=== PATIENT | male | born 1950 | race Caucasian/White ===

== ENCOUNTER 2021-12-14 21:11 | Emergency (ER) | payer MEDICARE ==
[~2021-12-14 21:11] MED LIST: AMARYL4 MG PO; GLUCOPHAGE1000 MG PO; LIPITOR40 MG PO; LISINOPRIL-HCT1 EACH PO; TOPROL XL 25MG25 MG PO; ZANTAC150 MG PO
[2021-12-14 22:42] LABS: BASOPHIL 2.2 % (0-2); EOSINOPHIL 0 % (0-7); HCT 36.6 % (42.0-52.0); HGB 11.6 g/dl (13.2-18.0); LYMPHOCYTE 17.4 % (15-48); MCH 27.6 pg (25.0-31.0); MCHC 31.7 g/dL (32.0-36.0); MCV 86.9 fL (78.0-100.0); MONOCYTE 9.6 % (0-12); NEUTROPHIL 69.7 % (41-80); NRBC 0; RBC 4.21 M/uL (4.70-6.00); WBC 2.7 K/uL (4.0-10.5)
[2021-12-14 22:48] LABS: LACTIC ACID 0.9 mmol/L (0.4-1.9)
[2021-12-14 22:58] LABS: ALBUMIN 3.1 g/dL (3.4-5.0); BILIRUBIN - TOTAL 0.3 mg/dL (0.2-1.0); BUN/CREAT RATIO (CALC) 22.9 RATIO; CREATININE 0.96 mg/dL (0.67-1.17); GLOBULIN (CALCULATION) 4.8 g/dL; POTASSIUM 4.3 mmol/L (3.5-5.1); TOTAL PROTEIN 7.9 g/dL (6.4-8.2)
[2021-12-14 23:04] LABS: INFLUENZA A NAA NEGATIVE (NEGATIVE)
[2021-12-14 23:07] LABS: CORONAVIRUS 2019 SARS-COV-2 POSITIVE (NEGATIVE)
[2021-12-14 23:30] LABS: PLT 49 K/uL (150-400)
[2021-12-15 01:21] LABS: BILIRUBIN NEGATIVE (NEGATIVE); BLOOD TRACE-INTACT Ery/uL (NEGATIVE); CLARITY CLEAR (CLEAR); COLOR YELLOW (YELLOW); GLUCOSE (U) NORMAL (NORMAL); LEUKOCYTES NEGATIVE Leu/uL (NEGATIVE); NITRITE NEGATIVE (NEGATIVE); PROTEIN 2+ mg/dL (NEGATIVE); SPECIFIC GRAVITY >=1.030 (1.001-1.030); UROBILINOGEN 0.2 mg/dL (0.2-1.0); pH 5.5 (5.0-9.0)
[2021-12-15 01:42] LABS: BACTERIA TRACE; URINARY WBC RARE
[2021-12-15 01:43] LABS: MUCOUS TRACE
[2021-12-15] MEDS ORDERED: PULMICORT FLE180 MCG INH (05:28)
[2021-12-15] MEDS ORDERED: ONDANSETRON ODT4 MG SL (05:28)
== END 2021-12-15 06:00 | disposition home or self-care (01) ==
LOC: FER 21:11
PROVIDERS: Nurse Practitioner Family
DX: U07.1 COVID-19 (principal); E11.9 Type 2 diabetes mellitus without complications; I10 Essential (primary) hypertension
CPT/HCPCS: 36415; 36600; 71275; 80053; 81001; 82803; 83605; 84145; 85025; 85379; 87040; 93005; J0692; J7030; Q9967; U0002

== ENCOUNTER → 2022-02-05 | Day surgery (SDC) | payer MEDICARE ==
[~2022-02-05] VITALS: Ht 190.5 cm; Wt 97.7 kg
[~2022-02-05] MED LIST changes: +CARDIZEM CD120 MG PO; +ELIQUIS5 MG PO; +ONDANSETRON ODT4 MG SL; +OZEMPIC0.25 MG/0. IJ; +PULMICORT FLE180 MCG INH
[2022-02-05 08:10] LABS: HCT 38.9 % (42.0-52.0); HGB 12.3 g/dl (13.2-18.0); MCHC 31.6 g/dL (32.0-36.0); MCV 88.6 fL (78.0-100.0); PLT 98 K/uL (150-400); RBC 4.39 M/uL (4.70-6.00); RDW 15.3 % (11.5-14.0); WBC 3.7 K/uL (4.0-10.5)
[2022-02-05 08:20] LABS: ALBUMIN 3.8 g/dL (3.4-5.0); BILIRUBIN - TOTAL 0.2 mg/dL (0.2-1.0); CREATININE 0.8 mg/dL (0.67-1.17); GLOBULIN (CALCULATION) 4.9 g/dL; POTASSIUM 4.7 mmol/L (3.5-5.1); TOTAL PROTEIN 8.7 g/dL (6.4-8.2)
== END | disposition home or self-care (01) ==
LOC: FAS 07:28
PROVIDERS: Surgery
DX: Z12.11 Encounter for screening for malignant neoplasm of colon (principal); D12.0 Benign neoplasm of cecum; K57.30 Diverticulosis of large intestine without perforation or abscess without bleeding; Z86.010 Personal history of colon polyps; I10 Essential (primary) hypertension; E11.9 Type 2 diabetes mellitus without complications; E78.00 Pure hypercholesterolemia, unspecified; K21.9 Gastro-esophageal reflux disease without esophagitis; D64.9 Anemia, unspecified; I48.91 Unspecified atrial fibrillation; E78.5 Hyperlipidemia, unspecified; Z87.891 Personal history of nicotine dependence; Z79.01 Long term (current) use of anticoagulants; Z79.899 Other long term (current) drug therapy
CPT/HCPCS: 36415; 80053; J1610; J2704; J7120